=== PATIENT | female | born 1970 | race African-American/Black ===

== ENCOUNTER 2018-12-09 01:03 | Emergency (ER) | payer OTHER ==
[~2018-12-09] VITALS: Ht 167.6 cm; Wt 72.0 kg
[2018-12-09 01:11] VITALS: BP 118/74
== END 2018-12-09 02:15 | disposition left against medical advice (07) ==
LOC: ER 01:03
DX: Z53.21 Procedure and treatment not carried out due to patient leaving prior to being seen by health care provider (principal)